=== PATIENT | female | born 1960 ===

== ENCOUNTER 2018-02-14 06:47 | Day surgery (SDC) | payer OTHER ==
[~2018-02-14 06:47] MED LIST: ASPIRIN81 M1 PO; CALCI PO; LASIX PO; LISINOPRIL20 MG PO; OMEPRAZOLE40 MG PO; PEPCID20 MG PO; PROVENTIL HFA6.7 GM IH; PROVENTIL S2 MG/5 ML PO; SINGULAIR10 MG PO; SPIRIVA RESPIMAT4 G1 IH; [UNRECOGNIZED DRUG - OTHER] PO; [UNRECOGNIZED DRUG - OTHER] PO
== END 2018-02-14 16:15 | disposition home or self-care (01) ==
LOC: CIR.AMB 06:47
DX: M51.37 Other intervertebral disc degeneration, lumbosacral region (principal); M51.36 Other intervertebral disc degeneration, lumbar region